=== PATIENT | female | born 1930 | race Two or more races ===

== ENCOUNTER 2018-12-21 14:23 | Emergency (ER) | payer MEDICAID, MEDICARE, OTHER ==
[~2018-12-21] VITALS: Ht 157.5 cm; Wt 69.0 kg
--- NOTE | 2018-12-21 15:40 | NUR ---
PT TO ROOM FROM LOBBY VIA WC. FAMILY AT BS. CALL LIGHT WITHIN REACH.
--- NOTE | 2018-12-21 16:29 | NUR ---
PT AND FAMILY STATING THEY WANT TO LEAVE. PT TIRED AND WANTS TO GO HOME, STATING THEY WANT TO COME BACK TOMORROW. PT AND FAMILY AWARE OF RISKS OF LEAVING. PT IN NAD, VSS.
[2018-12-21 16:32] VITALS: BP 132/74
== END 2018-12-21 16:42 | disposition left against medical advice (07) ==
LOC: ED 16:30
DX: R06.02 Shortness of breath (principal); Z53.21 Procedure and treatment not carried out due to patient leaving prior to being seen by health care provider
CPT/HCPCS: 93005; 99281